=== PATIENT | male | born 1990 | race African-American/Black ===

== ENCOUNTER 2024-02-27 14:23 | Emergency (ER) | payer SELFPAY ==
[~2024-02-27] VITALS: Ht 190.5 cm; Wt 82.0 kg
[2024-02-27 14:30] VITALS: BP 132/93; PULSE 96; RESP 16; TEMP 98.7; O2SAT 97
== END 2024-02-27 15:38 | disposition home or self-care (01) ==
LOC: ER 15:26
DX: F10.129 Alcohol abuse with intoxication, unspecified (principal); I10 Essential (primary) hypertension; Y90.9 Presence of alcohol in blood, level not specified
CPT/HCPCS: 99283

== ENCOUNTER 2024-07-04 19:37 | Emergency (ER) | payer SELFPAY ==
[~2024-07-04] VITALS: Ht 182.9 cm; Wt 74.0 kg
[2024-07-04 19:42] VITALS: BP 124/96; PULSE 98; RESP 16; TEMP 98.2; O2SAT 96
[2024-07-04] MEDS ORDERED: ONDA4TAB50 PO (19:49)
== END 2024-07-04 20:21 | disposition home or self-care (01) ==
LOC: ER 19:37
DX: Z00.00 Encounter for general adult medical examination without abnormal findings (principal); Z59.00 Homelessness unspecified; F10.20 Alcohol dependence, uncomplicated; I10 Essential (primary) hypertension; Y90.0 Blood alcohol level of less than 20 mg/100 ml
CPT/HCPCS: 99283

== ENCOUNTER 2024-07-15 06:51 | Inpatient (IN) | payer OTHER ==
[~2024-07-15] VITALS: Ht 190.5 cm; Wt 79.8 kg
[~2024-07-15 06:51] MED LIST: ONDA4TAB50 PO
[2024-07-15] MEDS: KETOROLAC 30MG/ML VIAL IV STA (07:05)
[2024-07-15] MEDS: ONDANSETRON HCL 4MG/2ML INJ IV STA (07:05)
[2024-07-15] MEDS: SODIUM CHLORIDE 0.9% 1,000 ML IV ONE (07:15)
[2024-07-15 07:27] LABS: BASOPHILS % 0.5 % (0.0-2.0); EOSINOPHILS % 0.5 % (0.0-5.0); HEMATOCRIT. 39.2 % (42.0-52.0); HEMOGLOBIN. 13.2 g/dL (14.0-18.0); LYMPHOCYTES % 10.9 % (20.0-50.0); MEAN CORPUSCULAR HGB CONC 33.7 g/dL (31.0-37.0); MEAN CORPUSCULAR VOLUME 89.1 fL (80.0-94.0); MEAN PLATELET VOLUME 8.2 fl (7.4-10.4); NEUTROPHILS % 81.1 % (40.0-76.0); PLATELET 119 x1000/uL (130-400); RED CELL DISTRIBUTION WIDTH 16.2 % (11.6-14.6); WHITE BLOOD COUNT 3.7 x1000/uL (4.5-11.0)
[2024-07-15 07:33] LABS: CARBON DIOXIDE 31 mEq/L (21-32); CHLORIDE 98 mEq/L (98-107); POTASSIUM 3.9 mEq/L (3.5-5.1); SODIUM 136 mEq/L (136-145)
[2024-07-15 07:34] LABS: CALCIUM 9.5 mg/dL (8.7-10.4)
[2024-07-15 07:39] LABS: CREATININE 0.8 mg/dL (0.6-1.3); GLUCOSE 96 mg/dL (70-105); UREA NITROGEN BLOOD 7 mg/dL (9-23)
[2024-07-15 07:41] LABS: TROPONIN I HIGH SENSITIVITY < 4 ng/L (3.0-53)
[2024-07-15 09:05] LABS: ALANINE AMINOTRANSFERASE 230 IU/L (10-49); ALBUMIN 4.4 g/dL (3.2-4.8); ASPARTATE AMINOTRANSFERASE 261 IU/L (<34); BILIRUBIN DIRECT 0.3 mg/dL (<=3.0); BILIRUBIN TOTAL 0.8 mg/dL (0.1-1.0); PROTEIN TOTAL 7.1 g/dL (6.0-8.3)
[2024-07-15] MEDS: LORAZEPAM 2MG/ML INJ IV ONE (10:45)
[2024-07-15 11:30] VITALS: BP 145/87; PULSE 90; RESP 18; TEMP 36.8072
[2024-07-15 12:00] VITALS: BP 145/97; PULSE 102; RESP 20; TEMP 36.78072; O2SAT 97
[2024-07-15] MEDS ORDERED: PANT40TA51 PO (12:52)
[2024-07-15] MEDS ORDERED: GABA-532 PO (12:52)
[2024-07-15] MEDS ORDERED: ONDANSETRON HCL 4MG/2ML INJ IV PRN (13:00)
[2024-07-15] MEDS ORDERED: MAGNESIUM/ALUMINUM HYDROXIDE/SIMETHICONE 30ML UDC PO PRN (13:00)
[2024-07-15] MEDS: PANTOPRAZOLE 40MG DR TABLET PO SCH (13:00)
[2024-07-15] MEDS ORDERED: ONDANSETRON HCL 4MG TABLET PO PRN (13:00)
[2024-07-15] MEDS ORDERED: LORAZEPAM 2MG/ML INJ IV PRN (13:00)
[2024-07-15] MEDS: ENOXAPARIN 40MG/0.4ML SYR SUBCUT SCH (13:44)
[2024-07-15] MEDS: LEVETIRACETAM 500MG PREMIX 100 ML IV SCH (15:20)
[2024-07-15] MEDS: MVI, ADULT NO.1 10 ML, FOLIC ACID 1 MG, THIAMINE HCL 100 MG in SODIUM CHLORIDE 0.9% 1,0... IV NR (15:22)
[2024-07-15] MEDS: DEXT 5%/0.45% NACL KCL 20MEQ/L 1,000 ML IV SCH (15:40)
[2024-07-15 16:00] VITALS: BP_SYST 152; BP_SYST 157; BP_DIAS 106; BP_DIAS 80; PULSE 91; RESP 18; RESP 20; TEMP 36.61404; O2SAT 99
[2024-07-15 20:00] VITALS: BP 146/102; PULSE 84; RESP 20; TEMP 36.55848; O2SAT 100
[2024-07-15] MEDS ORDERED: LEVETIRACETAM 500MG in NACL 100ML PREMIX IV SCH (21:00)
[2024-07-16] VITALS: BP 140/89; PULSE 75; RESP 20; TEMP 36.28068; O2SAT 95
[2024-07-16 04:00] VITALS: BP 136/89; PULSE 93; RESP 19; TEMP 36.114; O2SAT 99
[2024-07-16] MEDS: PANTOPRAZOLE 40MG DR TABLET PO SCH (06:11)
[2024-07-16 08:00] VITALS: BP 139/92; PULSE 85; RESP 16; TEMP 36.22512; O2SAT 98
[2024-07-16 09:47] LABS: BASOPHILS % 0.2 % (0.0-2.0); HEMATOCRIT. 38.6 % (42.0-52.0); HEMOGLOBIN. 12.7 g/dL (14.0-18.0); LYMPHOCYTES % 8.9 % (20.0-50.0); MEAN CORPUSCULAR HEMOGLOBIN 29.5 pg (28.0-32.0); MEAN CORPUSCULAR HGB CONC 32.9 g/dL (31.0-37.0); MEAN CORPUSCULAR VOLUME 89.5 fL (80.0-94.0); MEAN PLATELET VOLUME 9.1 fl (7.4-10.4); MONOCYTES % 9.7 % (2.0-8.0); NEUTROPHILS % 80.2 % (40.0-76.0); PLATELET 112 x1000/uL (130-400); RED BLOOD CELL COUNT 4.32 mill/uL (4.7-6.1); RED CELL DISTRIBUTION WIDTH 16.5 % (11.6-14.6); WHITE BLOOD COUNT 4.6 x1000/uL (4.5-11.0)
[2024-07-16 09:51] LABS: CHLORIDE 99 mEq/L (98-107); POTASSIUM 3.7 mEq/L (3.5-5.1); SODIUM 134 mEq/L (136-145)
[2024-07-16 09:52] LABS: CARBON DIOXIDE 28 mEq/L (21-32)
[2024-07-16 09:53] LABS: CALCIUM 9.1 mg/dL (8.7-10.4)
[2024-07-16 09:57] LABS: CREATININE 0.9 mg/dL (0.6-1.3); GLUCOSE 79 mg/dL (70-105)
[2024-07-16 10:05] LABS: UREA NITROGEN BLOOD < 5 mg/dL (9-23)
[2024-07-16 10:40] LABS: TROPONIN I HIGH SENSITIVITY < 4 ng/L (3.0-53)
[2024-07-16 12:00] VITALS: BP 134/82; PULSE 90; RESP 19; TEMP 36.33624; O2SAT 96
[2024-07-16 13:18] LABS: FOLIC ACID (FOLATE) SERUM 13.65 ng/mL (>5.38); VITAMIN B12 SERUM 558 pg/mL (211-911)
[2024-07-16 16:00] VITALS: BP 124/86; PULSE 94; RESP 18; TEMP 36.114; O2SAT 96
[2024-07-16 20:00] VITALS: BP 148/85; PULSE 78; RESP 21; TEMP 36.28068; O2SAT 97
[2024-07-17] VITALS: BP 130/82; PULSE 80; RESP 20; TEMP 36.44736; O2SAT 98
[2024-07-17 04:00] VITALS: BP 132/88; PULSE 80; RESP 18; TEMP 36.44736; O2SAT 98
[2024-07-17 08:00] VITALS: BP 133/96; PULSE 74; RESP 16; TEMP 36.114; O2SAT 96
[2024-07-17] MEDS: VISCOUS LIDOCAINE 2% 15 ML UDC PO PRN (09:01)
[2024-07-17 12:00] VITALS: BP 138/84; PULSE 74; RESP 18; TEMP 36.05844; O2SAT 98
[2024-07-17 16:00] VITALS: BP 148/110; PULSE 77; RESP 18; TEMP 36.28068; O2SAT 98
[2024-07-17] MEDS: LEVETIRACETAM 500MG TABLET PO SCH (16:02)
[2024-07-17] MEDS: CLONIDINE 0.1MG TABLET PO PRN (16:35)
[2024-07-17 20:00] VITALS: BP 135/96; PULSE 76; RESP 18; TEMP 36.3918; O2SAT 98
[2024-07-18 00:26] VITALS: BP 139/95; PULSE 65; RESP 18; TEMP 36.3918; O2SAT 100
[2024-07-18 04:00] VITALS: BP 114/72; PULSE 85; RESP 20; TEMP 36.114; O2SAT 97
[2024-07-18 08:00] VITALS: BP 132/96; PULSE 72; RESP 20; TEMP 36.55848; O2SAT 100
[2024-07-18 12:00] VITALS: BP 116/81; PULSE 76; RESP 20; TEMP 36.3918; O2SAT 100
[2024-07-18] MEDS: ACETAMINOPHEN 325MG TABLET PO PRN (15:04)
[2024-07-18 16:00] VITALS: BP 128/91; PULSE 69; RESP 20; TEMP 36.50292; O2SAT 100
[2024-07-18] MEDS ORDERED: KEPP500 PO (16:43)
[2024-07-18 20:00] VITALS: BP 123/85; PULSE 67; RESP 20; TEMP 36.6696; O2SAT 100
[2024-07-19] VITALS: BP 114/81; PULSE 73; RESP 20; TEMP 36.28068; O2SAT 100
[2024-07-19 04:00] VITALS: BP 119/82; PULSE 66; RESP 20; TEMP 36.44736; O2SAT 100
[2024-07-19 08:00] VITALS: BP 120/83; PULSE 76; RESP 18; TEMP 36.28068; O2SAT 100
[2024-07-19 11:22] VITALS: BP 120/83; PULSE 76; TEMP 97.3; O2SAT 100
[2024-07-19 12:00] VITALS: BP 130/99; PULSE 101; RESP 18; TEMP 36.33624; O2SAT 100
== END 2024-07-19 14:00 | disposition home or self-care (01) | DRG 53 ==
LOC: ER 06:51 → CANBEDREQ 08:14 → 7EST 08:17
PROVIDERS: ADMIT Internal Medicine Pulmonary Disease; ATTEND Internal Medicine Pulmonary Disease
PROC: 4A00X4Z Measurement of Central Nervous Electrical Activity, External Approach (ICD-10-PCS; principal; 2024-07-16)
DX: G40.909 Epilepsy, unspecified, not intractable, without status epilepticus (principal); D69.6 Thrombocytopenia, unspecified; F10.239 Alcohol dependence with withdrawal, unspecified; I10 Essential (primary) hypertension; Y90.9 Presence of alcohol in blood, level not specified; Z87.828 Personal history of other (healed) physical injury and trauma; Z87.891 Personal history of nicotine dependence
CPT/HCPCS: 36415; 71045; 80048; 80076; 82607; 82746; 83735; 83880; 84484; 85025; 93005; 95816; 97162; 99285; J1885; J1953; J2060; J2405; J3411; J3490; J7030

== ENCOUNTER 2024-07-19 17:03 | Emergency (ER) | payer OTHER ==
[~2024-07-19] VITALS: Ht 185.4 cm; Wt 84.0 kg
[~2024-07-19 17:03] MED LIST changes: +GABA-532 PO; +KEPP500 PO; +PANT40TA51 PO
[2024-07-19 17:12] VITALS: O2SAT 99
[2024-07-19 20:45] LABS: BASOPHILS % 0.4 % (0.0-2.0); EOSINOPHILS % 1.5 % (0.0-5.0); HEMATOCRIT. 42.1 % (42.0-52.0); HEMOGLOBIN. 13.7 g/dL (14.0-18.0); LYMPHOCYTES % 22.1 % (20.0-50.0); MEAN CORPUSCULAR HEMOGLOBIN 29.5 pg (28.0-32.0); MEAN CORPUSCULAR HGB CONC 32.6 g/dL (31.0-37.0); MEAN CORPUSCULAR VOLUME 90.5 fL (80.0-94.0); MEAN PLATELET VOLUME 8.1 fl (7.4-10.4); PLATELET 198 x1000/uL (130-400); RED BLOOD CELL COUNT 4.65 mill/uL (4.7-6.1); RED CELL DISTRIBUTION WIDTH 16.4 % (11.6-14.6); WHITE BLOOD COUNT 3.9 x1000/uL (4.5-11.0)
[2024-07-19 20:48] LABS: CHLORIDE 100 mEq/L (98-107); POTASSIUM 4.1 mEq/L (3.5-5.1); SODIUM 136 mEq/L (136-145)
[2024-07-19 20:49] LABS: CARBON DIOXIDE 29 mEq/L (21-32)
[2024-07-19 20:50] LABS: CALCIUM 9.6 mg/dL (8.7-10.4)
[2024-07-19 20:54] LABS: CREATININE 1.1 mg/dL (0.6-1.3); GLUCOSE 92 mg/dL (70-105); UREA NITROGEN BLOOD 7 mg/dL (9-23)
[2024-07-19 20:55] LABS: ETHANOL BLOOD 102 mg/dL (<10)
[2024-07-19 20:56] LABS: ACETAMINOPHEN < 2 ug/mL (10-30)
[2024-07-19 21:20] LABS: *AMPHETAMINES SCREEN URINE NEGATIVE (NEGATIVE); *BARBITURATES SCREEN URINE NEGATIVE (NEGATIVE); *BENZODIAZEPINES SCREEN URINE NEGATIVE (NEGATIVE); *COCAINE SCREEN URINE NEGATIVE (NEGATIVE); METHADONE URINE SCREEN NEGATIVE (NEGATIVE)
[2024-07-19 21:21] LABS: CANNABINOID URINE SCREEN NEGATIVE (NEGATIVE); ECSTASY MDMA SCREEN URINE NEGATIVE (NEGATIVE); OPIATES URINE SCREEN NEGATIVE (NEGATIVE); PHENCYCLIDINE URINE SCREEN NEGATIVE (NEGATIVE)
[2024-07-20 09:28] VITALS: BP 130/88; PULSE 66; RESP 18; TEMP 36.61404; O2SAT 100
[2024-07-20] MEDS: LEVETIRACETAM 500MG/5ML CUP PO SCH (09:31)
== END 2024-07-20 13:40 ==
LOC: ER 17:03
DX: R68.89 Other general symptoms and signs (principal); F10.20 Alcohol dependence, uncomplicated; I10 Essential (primary) hypertension; Z20.822 Contact with and (suspected) exposure to COVID-19; Y90.5 Blood alcohol level of 100-119 mg/100 ml
CPT/HCPCS: 80305; 80048; 80307; 80329; 80320; 85025; 36415; 99285; 87426; Z7610; G0480

== ENCOUNTER 2024-07-20 19:51 | Emergency (ER) | payer MEDICAID, OTHER ==
[~2024-07-20] VITALS: Ht 185.4 cm; Wt 75.0 kg
[2024-07-20 19:57] VITALS: O2SAT 95
[2024-07-20 20:07] VITALS: BP 128/88; PULSE 101; RESP 16; TEMP 98; O2SAT 98
[2024-07-20] MEDS ORDERED: SODIUM CHLORIDE 0.9% 1,000 ML IV ONE (20:30)
[2024-07-20 20:50] LABS: HEMATOCRIT. 41.5 % (42.0-52.0); HEMOGLOBIN. 13.2 g/dL (14.0-18.0); MEAN CORPUSCULAR HGB CONC 31.9 g/dL (31.0-37.0); MEAN CORPUSCULAR VOLUME 90.9 fL (80.0-94.0); MEAN PLATELET VOLUME 7.9 fl (7.4-10.4); PLATELET 214 x1000/uL (130-400); RED BLOOD CELL COUNT 4.56 mill/uL (4.7-6.1); RED CELL DISTRIBUTION WIDTH 16.5 % (11.6-14.6)
[2024-07-20 20:56] LABS: CHLORIDE 98 mEq/L (98-107); POTASSIUM 3.8 mEq/L (3.5-5.1); SODIUM 134 mEq/L (136-145)
[2024-07-20 20:57] LABS: CARBON DIOXIDE 31 mEq/L (21-32)
[2024-07-20 20:58] LABS: DIFFERENTIAL COMMENT 1
[2024-07-20 21:02] LABS: GLUCOSE 92 mg/dL (70-105); UREA NITROGEN BLOOD 8 mg/dL (9-23)
[2024-07-20 21:18] LABS: TROPONIN I HIGH SENSITIVITY < 4 ng/L (3.0-53)
[2024-07-20 22:51] LABS: ANISOCYTOSIS 1+; PLATELET ESTIMATE NORMAL
== END 2024-07-21 00:11 | disposition left against medical advice (07) ==
LOC: ER 20:25
DX: R53.1 Weakness (principal); F10.20 Alcohol dependence, uncomplicated; J45.909 Unspecified asthma, uncomplicated; I10 Essential (primary) hypertension
CPT/HCPCS: 99285; 71045; 80048; 83880; 85025; 84484; 36415; 93005; J7030

== ENCOUNTER 2024-07-21 00:29 | Emergency (ER) | payer OTHER ==
[~2024-07-21] VITALS: Ht 185.4 cm; Wt 75.0 kg
[2024-07-21 00:31] VITALS: PULSE 71; O2SAT 95
[2024-07-21 00:35] VITALS: BP 123/68; RESP 16; TEMP 98; O2SAT 98
== END 2024-07-21 03:10 | disposition home or self-care (01) ==
LOC: ER 00:35
DX: S01.552A Open bite of oral cavity, initial encounter (principal); I10 Essential (primary) hypertension; J45.909 Unspecified asthma, uncomplicated; Z98.890 Other specified postprocedural states; Z86.59 Personal history of other mental and behavioral disorders; X58.XXXA Exposure to other specified factors, initial encounter; Y93.89 Activity, other specified; Y92.89 Other specified places as the place of occurrence of the external cause; Y99.8 Other external cause status
CPT/HCPCS: 99281

== ENCOUNTER 2024-07-21 16:51 | Emergency (ER) | payer MEDICAID, OTHER ==
[~2024-07-21] VITALS: Ht 190.5 cm; Wt 82.0 kg
[2024-07-21 16:55] VITALS: TEMP 98.3; O2SAT 100
[2024-07-21 16:56] VITALS: O2SAT 99
[2024-07-21 20:13] VITALS: BP 135/86; PULSE 85; RESP 16
[2024-07-21] MEDS: IBUPROFEN 600MG TABLET PO ONE (20:13)
[2024-07-21] MEDS: VISCOUS LIDOCAINE 2% 15 ML UDC MM NR (20:25)
[2024-08-09] MEDS ORDERED: LEVE500T19 PO (07:34)
[2024-08-09] MEDS ORDERED: HYDR-4001 PO (07:35)
[2024-08-09] MEDS ORDERED: OMEP20CA14 PO (07:35)
[2024-08-09] MEDS ORDERED: DIAZ5TAB4 PO (07:35)
[2024-08-09] MEDS ORDERED: GABA-529 PO (07:35)
[2024-08-09] MEDS ORDERED: KETO10TA2 PO (07:35)
== END 2024-07-21 21:11 | disposition home or self-care (01) ==
LOC: ER 16:51
DX: S00.512A Abrasion of oral cavity, initial encounter (principal); M79.10 Myalgia, unspecified site; J45.909 Unspecified asthma, uncomplicated; Z98.890 Other specified postprocedural states; Z79.899 Other long term (current) drug therapy; X58.XXXA Exposure to other specified factors, initial encounter; Y93.89 Activity, other specified; Y92.89 Other specified places as the place of occurrence of the external cause; Y99.8 Other external cause status
CPT/HCPCS: 99282; 99283

== ENCOUNTER 2024-07-22 08:56 | Emergency (ER) | payer OTHER ==
[~2024-07-22] VITALS: Ht 190.5 cm; Wt 83.0 kg
[2024-07-22 09:09] VITALS: BP 112/82; RESP 18; TEMP 98.1; O2SAT 100
[2024-07-22 09:11] VITALS: PULSE 110; O2SAT 100
== END 2024-07-22 13:00 | disposition home or self-care (01) ==
LOC: ER 08:56
DX: G40.909 Epilepsy, unspecified, not intractable, without status epilepticus (principal); J45.909 Unspecified asthma, uncomplicated; F10.20 Alcohol dependence, uncomplicated; Z98.890 Other specified postprocedural states; Z59.00 Homelessness unspecified; Y90.9 Presence of alcohol in blood, level not specified
CPT/HCPCS: 99281

== ENCOUNTER 2024-07-28 06:07 | Emergency (ER) | payer OTHER ==
[~2024-07-28] VITALS: Ht 182.9 cm; Wt 84.0 kg
[2024-07-28 06:14] VITALS: TEMP 98.2; O2SAT 97
[2024-07-28] MEDS: SODIUM CHLORIDE 0.9% 1,000 ML IV ONE (07:00)
[2024-07-28 07:14] LABS: CHLORIDE 105 mEq/L (98-107); POTASSIUM 3.7 mEq/L (3.5-5.1); SODIUM 144 mEq/L (136-145)
[2024-07-28 07:15] LABS: CARBON DIOXIDE 32 mEq/L (21-32)
[2024-07-28 07:16] LABS: CALCIUM 9.3 mg/dL (8.7-10.4)
[2024-07-28 07:20] LABS: CREATININE 1.1 mg/dL (0.6-1.3); GLUCOSE 77 mg/dL (70-105); UREA NITROGEN BLOOD 8 mg/dL (9-23)
[2024-07-28 07:30] LABS: ETHANOL BLOOD 295 mg/dL (<10)
[2024-07-28 07:33] LABS: BASOPHILS % 1.2 % (0.0-2.0); EOSINOPHILS % 1.8 % (0.0-5.0); HEMATOCRIT. 39.7 % (42.0-52.0); HEMOGLOBIN. 12.9 g/dL (14.0-18.0); LYMPHOCYTES % 23.6 % (20.0-50.0); MEAN CORPUSCULAR HGB CONC 32.6 g/dL (31.0-37.0); MEAN CORPUSCULAR VOLUME 91.8 fL (80.0-94.0); MONOCYTES % 9.5 % (2.0-8.0); NEUTROPHILS % 63.9 % (40.0-76.0); PLATELET 316 x1000/uL (130-400); RED BLOOD CELL COUNT 4.32 mill/uL (4.7-6.1); RED CELL DISTRIBUTION WIDTH 16.2 % (11.6-14.6); WHITE BLOOD COUNT 4.7 x1000/uL (4.5-11.0)
[2024-07-28 10:00] VITALS: BP 72/78; PULSE 20; RESP 20; O2SAT 98
[2024-08-09] MEDS ORDERED: LEVE500T19 PO (07:34)
[2024-08-09] MEDS ORDERED: DIAZ5TAB4 PO (07:35)
[2024-08-09] MEDS ORDERED: GABA-529 PO (07:35)
[2024-08-09] MEDS ORDERED: KETO10TA2 PO (07:35)
[2024-08-09] MEDS ORDERED: OMEP20CA14 PO (07:35)
[2024-08-09] MEDS ORDERED: HYDR-4001 PO (07:35)
== END 2024-07-28 14:54 | disposition home or self-care (01) ==
LOC: ER 06:07
DX: F10.129 Alcohol abuse with intoxication, unspecified (principal); J45.909 Unspecified asthma, uncomplicated; Z98.890 Other specified postprocedural states; Y90.9 Presence of alcohol in blood, level not specified
CPT/HCPCS: 80048; 80320; 85025; 36415; 70450; 96360; 99284; J7030; G0480

== ENCOUNTER 2024-08-01 09:29 | Emergency (ER) | payer MEDICAID ==
[~2024-08-01] VITALS: Ht 182.9 cm; Wt 84.0 kg
[2024-08-01 09:34] VITALS: O2SAT 99
[2024-08-01 09:46] VITALS: BP 132/92; PULSE 84; RESP 18; TEMP 98.6; O2SAT 99
[2024-08-01 10:24] LABS: CHLORIDE 103 mEq/L (98-107); POTASSIUM 3.9 mEq/L (3.5-5.1); SODIUM 138 mEq/L (136-145)
[2024-08-01 10:25] LABS: CARBON DIOXIDE 29 mEq/L (21-32)
[2024-08-01 10:26] LABS: CALCIUM 9.1 mg/dL (8.7-10.4)
[2024-08-01 10:30] LABS: CREATININE 0.9 mg/dL (0.6-1.3); GLUCOSE 91 mg/dL (70-105); UREA NITROGEN BLOOD 12 mg/dL (9-23)
[2024-08-01 10:32] LABS: TROPONIN I HIGH SENSITIVITY < 4 ng/L (3.0-53)
[2024-08-01 10:37] LABS: BASOPHILS % 0.9 % (0.0-2.0); EOSINOPHILS % 1.4 % (0.0-5.0); HEMATOCRIT. 38.9 % (42.0-52.0); HEMOGLOBIN. 12.9 g/dL (14.0-18.0); LYMPHOCYTES % 11.7 % (20.0-50.0); MEAN CORPUSCULAR HEMOGLOBIN 29.7 pg (28.0-32.0); MEAN CORPUSCULAR HGB CONC 33.2 g/dL (31.0-37.0); MEAN CORPUSCULAR VOLUME 89.6 fL (80.0-94.0); MEAN PLATELET VOLUME 8.4 fl (7.4-10.4); MONOCYTES % 7.9 % (2.0-8.0); NEUTROPHILS % 78.1 % (40.0-76.0); PLATELET 265 x1000/uL (130-400); RED BLOOD CELL COUNT 4.35 mill/uL (4.7-6.1); RED CELL DISTRIBUTION WIDTH 15.9 % (11.6-14.6); WHITE BLOOD COUNT 7.2 x1000/uL (4.5-11.0)
== END 2024-08-01 11:18 | disposition left against medical advice (07) ==
LOC: ER 09:41
DX: R53.1 Weakness (principal); F10.20 Alcohol dependence, uncomplicated; J45.909 Unspecified asthma, uncomplicated; Z79.899 Other long term (current) drug therapy; Y90.9 Presence of alcohol in blood, level not specified
CPT/HCPCS: 36415; 80048; 84484; 85025; 99283

== ENCOUNTER 2024-08-01 12:42 | Emergency (ER) | payer MEDICAID, OTHER ==
[~2024-08-01] VITALS: Ht 182.9 cm; Wt 87.0 kg
[2024-08-01 13:21] VITALS: TEMP 98.7; O2SAT 100
[2024-08-01 13:33] VITALS: BP 128/77; PULSE 74; RESP 16; O2SAT 99
== END 2024-08-01 13:36 | disposition home or self-care (01) ==
LOC: ER 12:42
DX: R53.1 Weakness (principal); J45.909 Unspecified asthma, uncomplicated; F10.20 Alcohol dependence, uncomplicated; G40.909 Epilepsy, unspecified, not intractable, without status epilepticus
CPT/HCPCS: 99281

== ENCOUNTER 2024-08-02 21:09 | Emergency (ER) | payer OTHER ==
[~2024-08-02] VITALS: Ht 190.5 cm; Wt 85.0 kg
[2024-08-02 21:17] VITALS: O2SAT 100
[2024-08-02] MEDS: LORAZEPAM 1MG TABLET PO ONE (21:30)
[2024-08-02] MEDS: OLANZAPINE 5MG TABLET ODT PO ONE (21:30)
[2024-08-02 22:34] LABS: BASOPHILS % 0.6 % (0.0-2.0); EOSINOPHILS % 2.7 % (0.0-5.0); HEMATOCRIT. 39.4 % (42.0-52.0); HEMOGLOBIN. 13.1 g/dL (14.0-18.0); MEAN CORPUSCULAR HGB CONC 33.3 g/dL (31.0-37.0); MEAN PLATELET VOLUME 8.7 fl (7.4-10.4); MONOCYTES % 7.5 % (2.0-8.0); NEUTROPHILS % 68.2 % (40.0-76.0); PLATELET 250 x1000/uL (130-400); RED BLOOD CELL COUNT 4.37 mill/uL (4.7-6.1); RED CELL DISTRIBUTION WIDTH 16.1 % (11.6-14.6); WHITE BLOOD COUNT 5.6 x1000/uL (4.5-11.0)
[2024-08-02 22:46] LABS: CHLORIDE 104 mEq/L (98-107); POTASSIUM 4.7 mEq/L (3.5-5.1); SODIUM 140 mEq/L (136-145)
[2024-08-02 22:47] LABS: CARBON DIOXIDE 29 mEq/L (21-32)
[2024-08-02 22:47] LABS: *AMPHETAMINES SCREEN URINE NEGATIVE (NEGATIVE); *BARBITURATES SCREEN URINE NEGATIVE (NEGATIVE); *BENZODIAZEPINES SCREEN URINE NEGATIVE (NEGATIVE); *COCAINE SCREEN URINE NEGATIVE (NEGATIVE)
[2024-08-02 22:48] LABS: CALCIUM 9.5 mg/dL (8.7-10.4)
[2024-08-02 22:48] LABS: CANNABINOID URINE SCREEN NEGATIVE (NEGATIVE); ECSTASY MDMA SCREEN URINE NEGATIVE (NEGATIVE); METHADONE URINE SCREEN NEGATIVE (NEGATIVE); OPIATES URINE SCREEN NEGATIVE (NEGATIVE); PHENCYCLIDINE URINE SCREEN NEGATIVE (NEGATIVE)
[2024-08-02 22:52] LABS: CREATININE 1.2 mg/dL (0.6-1.3)
[2024-08-02 22:53] LABS: GLUCOSE 89 mg/dL (70-105); UREA NITROGEN BLOOD 13 mg/dL (9-23)
[2024-08-02] MEDS: PANTOPRAZOLE 40MG DR TABLET PO ONE (22:53)
[2024-08-02] MEDS: LEVETIRACETAM 500MG TABLET PO SCH (22:53)
[2024-08-02] MEDS: ONDANSETRON 4MG ODT PO ONE (22:53)
[2024-08-02 22:54] LABS: ACETAMINOPHEN < 2 ug/mL (10-30)
[2024-08-02 23:02] LABS: ETHANOL BLOOD 295 mg/dL (<10)
[2024-08-03 15:15] VITALS: BP 136/75; PULSE 79; RESP 13; TEMP 36.94740; O2SAT 100
[2024-08-09] MEDS ORDERED: LEVE500T19 PO (07:34)
[2024-08-09] MEDS ORDERED: GABA-529 PO (07:35)
[2024-08-09] MEDS ORDERED: DIAZ5TAB4 PO (07:35)
[2024-08-09] MEDS ORDERED: HYDR-4001 PO (07:35)
[2024-08-09] MEDS ORDERED: OMEP20CA14 PO (07:35)
[2024-08-09] MEDS ORDERED: KETO10TA2 PO (07:35)
== END 2024-08-03 15:25 | disposition home or self-care (01) ==
LOC: ER 21:09
DX: R45.851 Suicidal ideations (principal); F10.20 Alcohol dependence, uncomplicated; J45.909 Unspecified asthma, uncomplicated; Y90.9 Presence of alcohol in blood, level not specified; Z20.822 Contact with and (suspected) exposure to COVID-19
CPT/HCPCS: 80305; 80048; 80307; 80329; 80320; 85025; 36415; 99285; 87426; Q0162; G0480

== ENCOUNTER → 2024-08-05 | Emergency (ER) | payer OTHER ==
[~2024-08-05] VITALS: Ht 182.9 cm; Wt 87.0 kg
[~2024-08-05] MED LIST changes: +ACET-2708 MT; +DIAZ5TAB4 PO; +GABA-529 PO; +HYDR-4001 PO; +KETO10TA2 PO; +LEVE500T19 PO; +OMEP20CA14 PO
[2024-08-05 21:33] VITALS: O2SAT 98
[2024-08-05] MEDS: HALOPERIDOL LACTATE 5MG/ML VIAL IM ONE (22:14)
[2024-08-05 23:31] LABS: CLARITY URINE CLEAR (CLEAR); COLOR URINE YELLOW (YELLOW); GLUCOSE URINE NEGATIVE (NEGATIVE); KETONES URINE NEGATIVE (NEGATIVE); LEUKOCYTE ESTERASE URINE NEGATIVE (NEGATIVE); NITRITE URINE NEGATIVE (NEGATIVE); OCCULT BLOOD URINE NEGATIVE (NEGATIVE); PROTEIN URINE NEGATIVE (NEGATIVE); SPECIFIC GRAVITY URINE 1.013 (1.005-1.030); UROBILINOGEN URINE 0.2 E.U./dL (0.2-1.0)
[2024-08-05 23:38] LABS: *AMPHETAMINES SCREEN URINE NEGATIVE (NEGATIVE); *BARBITURATES SCREEN URINE NEGATIVE (NEGATIVE); *BENZODIAZEPINES SCREEN URINE NEGATIVE (NEGATIVE); *COCAINE SCREEN URINE NEGATIVE (NEGATIVE); METHADONE URINE SCREEN NEGATIVE (NEGATIVE); OPIATES URINE SCREEN NEGATIVE (NEGATIVE)
[2024-08-05 23:39] LABS: CANNABINOID URINE SCREEN NEGATIVE (NEGATIVE); ECSTASY MDMA SCREEN URINE NEGATIVE (NEGATIVE); PHENCYCLIDINE URINE SCREEN NEGATIVE (NEGATIVE)
[2024-08-06 00:02] LABS: BASOPHILS % 0.6 % (0.0-2.0); EOSINOPHILS % 3.4 % (0.0-5.0); HEMATOCRIT. 36.7 % (42.0-52.0); HEMOGLOBIN. 12.1 g/dL (14.0-18.0); LYMPHOCYTES % 27.8 % (20.0-50.0); MEAN CORPUSCULAR HEMOGLOBIN 29.7 pg (28.0-32.0); MEAN CORPUSCULAR VOLUME 89.9 fL (80.0-94.0); MEAN PLATELET VOLUME 8.1 fl (7.4-10.4); MONOCYTES % 7.6 % (2.0-8.0); NEUTROPHILS % 60.6 % (40.0-76.0); PLATELET 206 x1000/uL (130-400); RED BLOOD CELL COUNT 4.09 mill/uL (4.7-6.1); WHITE BLOOD COUNT 3.6 x1000/uL (4.5-11.0)
[2024-08-06 00:05] LABS: CHLORIDE 107 mEq/L (98-107); SODIUM 143 mEq/L (136-145)
[2024-08-06 00:06] LABS: CARBON DIOXIDE 30 mEq/L (21-32)
[2024-08-06 00:07] LABS: CALCIUM 8.9 mg/dL (8.7-10.4)
[2024-08-06 00:11] LABS: CREATININE 1.2 mg/dL (0.6-1.3)
[2024-08-06 00:12] LABS: ETHANOL BLOOD 268 mg/dL (<10); GLUCOSE 103 mg/dL (70-105); UREA NITROGEN BLOOD 10 mg/dL (9-23)
[2024-08-06 09:58] VITALS: BP 141/81; PULSE 81; RESP 18; TEMP 36.89184; O2SAT 98
== END ==
LOC: ER 21:26
DX: F10.129 Alcohol abuse with intoxication, unspecified (principal); Z20.822 Contact with and (suspected) exposure to COVID-19; Z86.59 Personal history of other mental and behavioral disorders; Z79.899 Other long term (current) drug therapy; Y90.8 Blood alcohol level of 240 mg/100 ml or more
CPT/HCPCS: 80305; 80048; 81003; 80320; 85025; 36415; 96372; 99284; 87426; J1630; Z7610; G0480

== ENCOUNTER 2024-08-07 21:49 | Emergency (ER) | payer MEDICAID, OTHER ==
[~2024-08-07] VITALS: Ht 190.5 cm; Wt 84.0 kg
[~2024-08-07 21:49] MED LIST changes: -ACET-2708 MT; -DIAZ5TAB4 PO; -GABA-529 PO; -HYDR-4001 PO; -KETO10TA2 PO; -LEVE500T19 PO; -OMEP20CA14 PO
[2024-08-07 22:01] VITALS: BP 135/98; PULSE 86; RESP 16; TEMP 98.5; O2SAT 98
[2024-08-07] MEDS ORDERED: ONDANSETRON HCL 4MG/2ML INJ IV STA (22:17)
[2024-08-07] MEDS: SODIUM CHLORIDE 0.9% 1,000 ML IV ONE (22:59)
[2024-08-07] MEDS: ONDANSETRON HCL 4MG/2ML INJ IV NR (22:59)
[2024-08-07 23:12] LABS: BASOPHILS % 0.4 % (0.0-2.0); EOSINOPHILS % 0.6 % (0.0-5.0); HEMATOCRIT. 39.1 % (42.0-52.0); HEMOGLOBIN. 12.9 g/dL (14.0-18.0); LYMPHOCYTES % 7.1 % (20.0-50.0); MEAN CORPUSCULAR HEMOGLOBIN 29.6 pg (28.0-32.0); MEAN CORPUSCULAR HGB CONC 33.1 g/dL (31.0-37.0); MEAN CORPUSCULAR VOLUME 89.4 fL (80.0-94.0); MEAN PLATELET VOLUME 8.3 fl (7.4-10.4); NEUTROPHILS % 86.9 % (40.0-76.0); PLATELET 186 x1000/uL (130-400); RED BLOOD CELL COUNT 4.38 mill/uL (4.7-6.1); RED CELL DISTRIBUTION WIDTH 15.9 % (11.6-14.6); WHITE BLOOD COUNT 7.9 x1000/uL (4.5-11.0)
[2024-08-07 23:19] LABS: CHLORIDE 100 mEq/L (98-107); POTASSIUM 3.8 mEq/L (3.5-5.1); SODIUM 137 mEq/L (136-145)
[2024-08-07 23:20] LABS: CARBON DIOXIDE 28 mEq/L (21-32); INR 0.9; PROTHROMBIN TIME 10.1 sec (9.6-11.0)
[2024-08-07 23:21] LABS: CALCIUM 9.3 mg/dL (8.7-10.4)
[2024-08-07 23:25] LABS: CREATININE 0.9 mg/dL (0.6-1.3); GLUCOSE 122 mg/dL (70-105)
[2024-08-07 23:26] LABS: ETHANOL BLOOD 232 mg/dL (<10); UREA NITROGEN BLOOD 12 mg/dL (9-23)
[2024-08-07 23:27] LABS: ACETAMINOPHEN < 2 ug/mL (10-30); ALANINE AMINOTRANSFERASE 28 IU/L (10-49); ALBUMIN 4.6 g/dL (3.2-4.8); ASPARTATE AMINOTRANSFERASE 33 IU/L (<34)
[2024-08-07 23:28] LABS: BILIRUBIN DIRECT 0.2 mg/dL (<=3.0); BILIRUBIN TOTAL 0.4 mg/dL (0.1-1.0); PROTEIN TOTAL 7.3 g/dL (6.0-8.3)
[2024-08-07 23:45] LABS: CLARITY URINE CLEAR (CLEAR); COLOR URINE YELLOW (YELLOW); GLUCOSE URINE NEGATIVE (NEGATIVE); KETONES URINE TRACE (NEGATIVE); LEUKOCYTE ESTERASE URINE TRACE (NEGATIVE); NITRITE URINE NEGATIVE (NEGATIVE); OCCULT BLOOD URINE NEGATIVE (NEGATIVE); PROTEIN URINE NEGATIVE (NEGATIVE); SPECIFIC GRAVITY URINE 1.014 (1.005-1.030); UROBILINOGEN URINE 0.2 E.U./dL (0.2-1.0)
[2024-08-07 23:51] LABS: *AMPHETAMINES SCREEN URINE NEGATIVE (NEGATIVE); *BARBITURATES SCREEN URINE NEGATIVE (NEGATIVE); *BENZODIAZEPINES SCREEN URINE NEGATIVE (NEGATIVE)
[2024-08-07 23:52] LABS: *COCAINE SCREEN URINE NEGATIVE (NEGATIVE); CANNABINOID URINE SCREEN NEGATIVE (NEGATIVE); ECSTASY MDMA SCREEN URINE NEGATIVE (NEGATIVE); METHADONE URINE SCREEN NEGATIVE (NEGATIVE); OPIATES URINE SCREEN NEGATIVE (NEGATIVE); PHENCYCLIDINE URINE SCREEN NEGATIVE (NEGATIVE)
[2024-08-08 03:08] LABS: SQUAMOUS EPITHELIAL CELL URINE FEW /lpf (RARE/1+)
[2024-08-08 03:09] LABS: WBC URINE 0-2 /hpf (0-2)
[2024-08-08 03:10] LABS: BACTERIA URINE NONE SEEN; RBC URINE 0-2 /hpf (0-2)
[2024-08-09] MEDS ORDERED: LEVE500T19 PO (07:34)
[2024-08-09] MEDS ORDERED: OMEP20CA14 PO (07:35)
[2024-08-09] MEDS ORDERED: KETO10TA2 PO (07:35)
[2024-08-09] MEDS ORDERED: DIAZ5TAB4 PO (07:35)
[2024-08-09] MEDS ORDERED: GABA-529 PO (07:35)
[2024-08-09] MEDS ORDERED: HYDR-4001 PO (07:35)
== END 2024-08-08 04:18 | disposition home or self-care (01) ==
LOC: ER 21:49
DX: F10.20 Alcohol dependence, uncomplicated (principal); R10.30 Lower abdominal pain, unspecified; R53.1 Weakness; E86.0 Dehydration; Y90.7 Blood alcohol level of 200-239 mg/100 ml
CPT/HCPCS: 80076; 80305; 80048; 81003; 80307; 80329; 80320; 83690; 85025; 85610; 36415; 96361; 96374; 99283; J2405; J7030; Z7610; G0480

== ENCOUNTER 2024-08-12 22:57 | Emergency (ER) | payer OTHER ==
[~2024-08-12] VITALS: Ht 185.4 cm; Wt 78.0 kg
[~2024-08-12 22:57] MED LIST changes: +DIAZ5TAB4 PO; +GABA-529 PO; +HYDR-4001 PO; +KETO10TA2 PO; +LEVE500T19 PO; +OMEP20CA14 PO
[2024-08-12 23:02] VITALS: O2SAT 100
[2024-08-12] MEDS ORDERED: ACETAMINOPHEN 325MG TABLET PO ONE (23:15)
[2024-08-13] MEDS ORDERED: ACET-2708 MT (02:15)
[2024-08-13 04:38] VITALS: BP 146/77; PULSE 80; RESP 18; TEMP 36.66960; O2SAT 100
[2024-08-13] MEDS: ACETAMINOPHEN 325MG TABLET PO NR (04:38)
== END 2024-08-13 04:42 | disposition home or self-care (01) ==
LOC: ER 22:57
DX: S09.8XXA Other specified injuries of head, initial encounter (principal); M25.562 Pain in left knee; F10.20 Alcohol dependence, uncomplicated; Z79.899 Other long term (current) drug therapy; Z59.00 Homelessness unspecified; W18.39XA Other fall on same level, initial encounter; Y93.89 Activity, other specified; Y92.89 Other specified places as the place of occurrence of the external cause; Y99.8 Other external cause status; Y90.9 Presence of alcohol in blood, level not specified
CPT/HCPCS: 73560; 99284

== ENCOUNTER 2024-08-25 12:22 | Emergency (ER) | payer OTHER ==
[~2024-08-25] VITALS: Ht 172.7 cm; Wt 73.0 kg
[~2024-08-25 12:22] MED LIST changes: +ACET-2708 MT
[2024-08-25 12:25] VITALS: BP 132/83; PULSE 94; RESP 18; O2SAT 97
[2024-08-25 13:04] VITALS: TEMP 98.7
[2024-08-25] MEDS: LEVETIRACETAM 500MG TABLET PO ONE (13:04)
[2024-08-25] MEDS: ACETAMINOPHEN 500MG TABLET PO ONE (13:04)
[2024-08-25] MEDS: SUMATRIPTAN SUCCINATE 25MG TABLET PO ONE (13:05)
== END 2024-08-25 13:25 | disposition home or self-care (01) ==
LOC: ER 12:22
DX: F10.129 Alcohol abuse with intoxication, unspecified (principal); G40.909 Epilepsy, unspecified, not intractable, without status epilepticus; Z59.00 Homelessness unspecified; Z79.899 Other long term (current) drug therapy; Y90.0 Blood alcohol level of less than 20 mg/100 ml
CPT/HCPCS: 99283

== ENCOUNTER 2024-08-26 20:33 | Emergency (ER) | payer OTHER ==
[~2024-08-26] VITALS: Ht 180.3 cm; Wt 91.0 kg
[2024-08-26 20:43] VITALS: BP 127/85; PULSE 91; RESP 18; TEMP 98.6; O2SAT 98
[2024-08-26] MEDS: ACETAMINOPHEN 325MG TABLET PO ONE (21:00)
[2024-08-26] MEDS: LEVETIRACETAM 500MG TABLET PO ONE (21:00)
[2024-08-27] MEDS: ACETAMINOPHEN 500MG TABLET PO NR (03:34)
[2024-08-27] MEDS: LEVETIRACETAM 500MG TABLET PO NR (03:34)
== END 2024-08-27 03:36 | disposition home or self-care (01) ==
LOC: ER 20:33
DX: F10.229 Alcohol dependence with intoxication, unspecified (principal); I10 Essential (primary) hypertension; R47.81 Slurred speech; G40.909 Epilepsy, unspecified, not intractable, without status epilepticus; Z79.899 Other long term (current) drug therapy; Y90.9 Presence of alcohol in blood, level not specified
CPT/HCPCS: 99283

== ENCOUNTER 2024-08-27 09:10 | Emergency (ER) | payer MEDICAID, OTHER ==
[~2024-08-27] VITALS: Ht 177.8 cm; Wt 77.0 kg
[2024-08-27 09:13] VITALS: O2SAT 100
[2024-08-27] MEDS: LEVETIRACETAM 500MG TABLET PO STA (09:40)
[2024-08-27 10:15] LABS: BASOPHILS % 1.1 % (0.0-2.0); EOSINOPHILS % 3.7 % (0.0-5.0); HEMATOCRIT. 41.2 % (42.0-52.0); HEMOGLOBIN. 13.3 g/dL (14.0-18.0); LYMPHOCYTES % 23.4 % (20.0-50.0); MEAN CORPUSCULAR HGB CONC 32.2 g/dL (31.0-37.0); MEAN CORPUSCULAR VOLUME 90.2 fL (80.0-94.0); MEAN PLATELET VOLUME 8.2 fl (7.4-10.4); MONOCYTES % 8.1 % (2.0-8.0); NEUTROPHILS % 63.7 % (40.0-76.0); PLATELET 206 x1000/uL (130-400); RED BLOOD CELL COUNT 4.56 mill/uL (4.7-6.1); RED CELL DISTRIBUTION WIDTH 15.3 % (11.6-14.6); WHITE BLOOD COUNT 3.6 x1000/uL (4.5-11.0)
[2024-08-27 10:22] LABS: CHLORIDE 106 mEq/L (98-107); POTASSIUM 4.5 mEq/L (3.5-5.1); SODIUM 142 mEq/L (136-145)
[2024-08-27 10:23] LABS: CARBON DIOXIDE 30 mEq/L (21-32)
[2024-08-27 10:24] LABS: CALCIUM 9.6 mg/dL (8.7-10.4)
[2024-08-27 10:28] LABS: GLUCOSE 91 mg/dL (70-105)
[2024-08-27 10:29] LABS: ETHANOL BLOOD 292 mg/dL (<10); UREA NITROGEN BLOOD 6 mg/dL (9-23)
[2024-08-27 10:30] LABS: ACETAMINOPHEN < 2 ug/mL (10-30)
[2024-08-27 10:55] LABS: CLARITY URINE CLEAR (CLEAR); COLOR URINE YELLOW (YELLOW); GLUCOSE URINE NEGATIVE (NEGATIVE); KETONES URINE NEGATIVE (NEGATIVE); LEUKOCYTE ESTERASE URINE NEGATIVE (NEGATIVE); NITRITE URINE NEGATIVE (NEGATIVE); OCCULT BLOOD URINE NEGATIVE (NEGATIVE); PH URINE 7.5 (4.5-8.0); PROTEIN URINE NEGATIVE (NEGATIVE); SPECIFIC GRAVITY URINE 1.004 (1.005-1.030); UROBILINOGEN URINE 0.2 E.U./dL (0.2-1.0)
[2024-08-27 11:29] LABS: *AMPHETAMINES SCREEN URINE NEGATIVE (NEGATIVE)
[2024-08-27 11:31] LABS: *BARBITURATES SCREEN URINE NEGATIVE (NEGATIVE); *BENZODIAZEPINES SCREEN URINE NEGATIVE (NEGATIVE); *COCAINE SCREEN URINE NEGATIVE (NEGATIVE); CANNABINOID URINE SCREEN NEGATIVE (NEGATIVE); ECSTASY MDMA SCREEN URINE NEGATIVE (NEGATIVE); METHADONE URINE SCREEN NEGATIVE (NEGATIVE); OPIATES URINE SCREEN NEGATIVE (NEGATIVE); PHENCYCLIDINE URINE SCREEN NEGATIVE (NEGATIVE)
[2024-08-27] MEDS: ONDANSETRON 4MG ODT PO ONE (17:15)
[2024-08-29] MEDS: ONDANSETRON 4MG ODT PO ONE (17:10)
[2024-08-29] MEDS: LEVETIRACETAM 500MG TABLET PO ONE (17:10)
[2024-08-29] MEDS: CHLORDIAZEPOXIDE 25MG CAPSULE PO ONE (23:38)
[2024-08-29] MEDS: CHLORDIAZEPOXIDE 25MG CAPSULE PO NR (23:40)
[2024-08-30] MEDS: ACETAMINOPHEN 325MG TABLET PO ONE (04:37)
[2024-08-30] MEDS: ONDANSETRON 4MG ODT PO ONE (04:37)
[2024-08-30 10:15] VITALS: BP 140/82; PULSE 89; RESP 18; TEMP 36.94740; O2SAT 100
[2024-08-31] MEDS ORDERED: GABA-532 PO (21:54)
[2024-08-31] MEDS ORDERED: HYDR50TA54 PO (21:54)
[2024-08-31] MEDS ORDERED: NALT50TA6 PO (21:54)
== END 2024-08-30 10:42 | disposition home or self-care (01) ==
LOC: ER 09:10
DX: R45.851 Suicidal ideations (principal); R56.9 Unspecified convulsions; F10.20 Alcohol dependence, uncomplicated; Z79.899 Other long term (current) drug therapy; Z86.73 Personal history of transient ischemic attack (TIA), and cerebral infarction without residual deficits; Z20.822 Contact with and (suspected) exposure to COVID-19; Y90.9 Presence of alcohol in blood, level not specified
CPT/HCPCS: 80305; 80048; 81003; 80307; 80329; 80320; 85025; 36415; 70450; 99291; 87426; Q0162 ×3; Z7610; G0480

== ENCOUNTER 2024-08-30 17:45 | Emergency (ER) | payer OTHER ==
[~2024-08-30] VITALS: Ht 180.3 cm; Wt 73.0 kg
[2024-08-30 17:50] VITALS: TEMP 98.4; O2SAT 98
[2024-08-30] MEDS: ONDANSETRON HCL 4MG/2ML INJ IV ONE (18:45)
[2024-08-30] MEDS: SODIUM CHLORIDE 0.9% 1,000 ML IV ONE (18:45)
[2024-08-30 19:02] LABS: BASOPHILS % 0.1 % (0.0-2.0); EOSINOPHILS % 1.1 % (0.0-5.0); HEMATOCRIT. 39.6 % (42.0-52.0); HEMOGLOBIN. 13.3 g/dL (14.0-18.0); LYMPHOCYTES % 11.8 % (20.0-50.0); MEAN CORPUSCULAR HEMOGLOBIN 30.1 pg (28.0-32.0); MEAN CORPUSCULAR HGB CONC 33.5 g/dL (31.0-37.0); MEAN CORPUSCULAR VOLUME 89.9 fL (80.0-94.0); MEAN PLATELET VOLUME 8.7 fl (7.4-10.4); MONOCYTES % 7.8 % (2.0-8.0); NEUTROPHILS % 79.2 % (40.0-76.0); PLATELET 188 x1000/uL (130-400); RED BLOOD CELL COUNT 4.41 mill/uL (4.7-6.1); RED CELL DISTRIBUTION WIDTH 14.5 % (11.6-14.6); WHITE BLOOD COUNT 5.6 x1000/uL (4.5-11.0)
[2024-08-30 19:07] LABS: CARBON DIOXIDE 26 mEq/L (21-32); CHLORIDE 95 mEq/L (98-107); POTASSIUM 3.6 mEq/L (3.5-5.1); SODIUM 131 mEq/L (136-145)
[2024-08-30 19:08] LABS: CALCIUM 9.4 mg/dL (8.7-10.4)
[2024-08-30 19:12] LABS: CREATININE 1.2 mg/dL (0.6-1.3)
[2024-08-30 19:13] LABS: ETHANOL BLOOD 201 mg/dL (<10); GLUCOSE 88 mg/dL (70-105); UREA NITROGEN BLOOD 12 mg/dL (9-23)
[2024-08-30 19:14] LABS: ALANINE AMINOTRANSFERASE 13 IU/L (10-49)
[2024-08-30 19:15] LABS: ALBUMIN 4.7 g/dL (3.2-4.8); ASPARTATE AMINOTRANSFERASE 22 IU/L (<34); BILIRUBIN DIRECT 0.1 mg/dL (<=3.0); BILIRUBIN TOTAL 0.3 mg/dL (0.1-1.0); PROTEIN TOTAL 7.3 g/dL (6.0-8.3)
[2024-08-30 20:23] VITALS: BP 120/80; PULSE 97; RESP 16; O2SAT 97
[2024-08-31] MEDS ORDERED: GABA-532 PO (21:54)
[2024-08-31] MEDS ORDERED: NALT50TA6 PO (21:54)
[2024-08-31] MEDS ORDERED: HYDR50TA54 PO (21:54)
== END 2024-08-30 20:48 | disposition home or self-care (01) ==
LOC: ER 17:45
DX: F10.129 Alcohol abuse with intoxication, unspecified (principal); Z79.899 Other long term (current) drug therapy; Y90.7 Blood alcohol level of 200-239 mg/100 ml
CPT/HCPCS: 80076; 80048; 80320; 83690; 85025; 36415; 96361; 96374; 99283; J2405; J7030; Z7610 ×3; G0480

== ENCOUNTER 2024-08-31 21:25 | Emergency (ER) | payer OTHER ==
[~2024-08-31] VITALS: Ht 190.5 cm; Wt 91.0 kg
[2024-08-31 21:27] VITALS: BP 110/70; PULSE 107; RESP 16; TEMP 98.8; O2SAT 99
[2024-08-31] MEDS ORDERED: CHLORDIAZEPOXIDE 25MG CAPSULE PO NR (21:45)
[2024-08-31] MEDS ORDERED: SODIUM CHLORIDE 0.9% 1,000 ML IV NR (21:45)
[2024-08-31] MEDS ORDERED: NALT50TA6 PO (21:54)
[2024-08-31] MEDS ORDERED: HYDR50TA54 PO (21:54)
[2024-08-31] MEDS ORDERED: GABA-532 PO (21:54)
[2024-08-31 22:53] LABS: HEMATOCRIT 39.6 % (42.0-52.0); HEMOGLOBIN 13.2 g/dL (14.0-18.0); MEAN CORPUSCULAR HEMOGLOBIN 29.8 pg (28.0-32.0); MEAN CORPUSCULAR HGB CONC 33.3 g/dL (31.0-37.0); MEAN CORPUSCULAR VOLUME 89.7 fL (80.0-94.0); PLATELET 168 x1000/uL (130-400); RED BLOOD CELL COUNT 4.42 mill/uL (4.7-6.1); RED CELL DISTRIBUTION WIDTH 14.6 % (11.6-14.6); WHITE BLOOD COUNT 6.8 x1000/uL (4.5-11.0)
[2024-08-31 22:59] LABS: CARBON DIOXIDE 27 mEq/L (21-32); CHLORIDE 102 mEq/L (98-107); POTASSIUM 3.5 mEq/L (3.5-5.1); SODIUM 136 mEq/L (136-145)
[2024-08-31 23:00] LABS: CALCIUM 9.5 mg/dL (8.7-10.4)
[2024-08-31 23:05] LABS: GLUCOSE 91 mg/dL (70-105); UREA NITROGEN BLOOD 8 mg/dL (9-23)
[2024-08-31 23:06] LABS: ALANINE AMINOTRANSFERASE 14 IU/L (10-49); ALBUMIN 4.7 g/dL (3.2-4.8); ASPARTATE AMINOTRANSFERASE 20 IU/L (<34)
[2024-08-31 23:07] LABS: BILIRUBIN TOTAL 0.3 mg/dL (0.1-1.0); PROTEIN TOTAL 7.5 g/dL (6.0-8.3)
== END 2024-09-01 06:30 | disposition home or self-care (01) ==
LOC: ER 21:25
DX: F10.239 Alcohol dependence with withdrawal, unspecified (principal); G40.909 Epilepsy, unspecified, not intractable, without status epilepticus; Z87.820 Personal history of traumatic brain injury; Z79.899 Other long term (current) drug therapy; Y90.9 Presence of alcohol in blood, level not specified
CPT/HCPCS: 36415; 80053; 82962; 85027; 93005; 99291

== ENCOUNTER 2024-09-02 18:47 | Emergency (ER) | payer OTHER ==
[~2024-09-02] VITALS: Ht 190.5 cm; Wt 91.0 kg
[~2024-09-02 18:47] MED LIST changes: -ACET-2708 MT; -DIAZ5TAB4 PO; -GABA-529 PO; -HYDR-4001 PO; +HYDR50TA54 PO; -KEPP500 PO; -KETO10TA2 PO; +NALT50TA6 PO; -OMEP20CA14 PO; -ONDA4TAB50 PO
[2024-09-02 18:49] VITALS: O2SAT 98
[2024-09-03 03:15] VITALS: BP 139/78; PULSE 97; RESP 15; TEMP 36.94740; O2SAT 98
== END 2024-09-03 03:17 | disposition home or self-care (01) ==
LOC: ER 18:47
DX: F10.129 Alcohol abuse with intoxication, unspecified (principal); Z79.899 Other long term (current) drug therapy; Z98.890 Other specified postprocedural states; Y90.9 Presence of alcohol in blood, level not specified
CPT/HCPCS: 99283

== ENCOUNTER 2024-09-07 18:48 | Emergency (ER) | payer OTHER ==
[~2024-09-07] VITALS: Ht 177.8 cm; Wt 84.5 kg
[2024-09-07 19:00] VITALS: TEMP 98.2; O2SAT 100
[2024-09-07 20:43] LABS: BASOPHILS % 0.6 % (0.0-2.0); EOSINOPHILS % 1.8 % (0.0-5.0); HEMATOCRIT. 39.7 % (42.0-52.0); HEMOGLOBIN. 13.4 g/dL (14.0-18.0); LYMPHOCYTES % 16.4 % (20.0-50.0); MEAN CORPUSCULAR HEMOGLOBIN 30.5 pg (28.0-32.0); MEAN CORPUSCULAR HGB CONC 33.8 g/dL (31.0-37.0); MEAN CORPUSCULAR VOLUME 90.2 fL (80.0-94.0); MEAN PLATELET VOLUME 7.8 fl (7.4-10.4); MONOCYTES % 7.2 % (2.0-8.0); PLATELET 197 x1000/uL (130-400); RED BLOOD CELL COUNT 4.41 mill/uL (4.7-6.1); RED CELL DISTRIBUTION WIDTH 14.8 % (11.6-14.6); WHITE BLOOD COUNT 5.6 x1000/uL (4.5-11.0)
[2024-09-07 20:48] LABS: CHLORIDE 105 mEq/L (98-107); POTASSIUM 4.3 mEq/L (3.5-5.1); SODIUM 143 mEq/L (136-145)
[2024-09-07 20:49] LABS: CARBON DIOXIDE 29 mEq/L (21-32)
[2024-09-07 20:54] LABS: CREATININE 0.9 mg/dL (0.6-1.3); GLUCOSE 94 mg/dL (70-105)
[2024-09-07 20:55] LABS: UREA NITROGEN BLOOD 10 mg/dL (9-23)
[2024-09-07 21:04] LABS: ETHANOL BLOOD 368 mg/dL (<10)
[2024-09-07] MEDS: LEVETIRACETAM 500MG TABLET PO ONE (21:13)
[2024-09-07 23:30] VITALS: BP 114/63; PULSE 96; RESP 16; O2SAT 99
== END 2024-09-08 00:03 | disposition home or self-care (01) ==
LOC: ER 18:48
DX: F10.229 Alcohol dependence with intoxication, unspecified (principal); G40.909 Epilepsy, unspecified, not intractable, without status epilepticus; Z79.899 Other long term (current) drug therapy; Y90.8 Blood alcohol level of 240 mg/100 ml or more
CPT/HCPCS: 36415; 80048; 80320; 83605; 85025; 99283; G0480

== ENCOUNTER 2024-09-13 14:19 | Emergency (ER) | payer OTHER ==
[~2024-09-13] VITALS: Ht 190.5 cm; Wt 88.0 kg
[2024-09-13 14:22] VITALS: O2SAT 98
[2024-09-13 14:39] VITALS: BP 125/85; PULSE 100; RESP 16; TEMP 98.7; O2SAT 96
== END 2024-09-13 16:07 | disposition left against medical advice (07) ==
LOC: ER 14:19
DX: R56.9 Unspecified convulsions (principal); Z53.21 Procedure and treatment not carried out due to patient leaving prior to being seen by health care provider

== ENCOUNTER 2024-09-13 17:43 | Emergency (ER) | payer OTHER ==
[~2024-09-13] VITALS: Ht 182.9 cm; Wt 82.0 kg
[2024-09-13 17:45] VITALS: BP 124/76; PULSE 110; RESP 18; TEMP 98.2; O2SAT 98
== END 2024-09-13 18:12 | disposition left against medical advice (07) ==
LOC: ER 17:43
DX: F10.129 Alcohol abuse with intoxication, unspecified (principal); Z53.21 Procedure and treatment not carried out due to patient leaving prior to being seen by health care provider; Y90.9 Presence of alcohol in blood, level not specified

== ENCOUNTER 2024-09-17 16:50 | Emergency (ER) | payer OTHER ==
[~2024-09-17] VITALS: Ht 190.5 cm; Wt 87.0 kg
[2024-09-17 16:53] VITALS: TEMP 98.4; O2SAT 98
[2024-09-17 18:11] VITALS: BP 100/41; PULSE 107; RESP 16; O2SAT 95
== END 2024-09-17 20:48 | disposition left against medical advice (07) ==
LOC: ER 16:50
DX: F10.229 Alcohol dependence with intoxication, unspecified (principal); Z79.899 Other long term (current) drug therapy; Y90.9 Presence of alcohol in blood, level not specified
CPT/HCPCS: 99283

== ENCOUNTER 2024-09-25 21:51 | Emergency (ER) | payer OTHER ==
[~2024-09-25] VITALS: Ht 180.3 cm; Wt 84.0 kg
[~2024-09-25 21:51] MED LIST changes: +KEPP500 MT; +KEPP500 PO
[2024-09-25 21:54] VITALS: TEMP 98.4; O2SAT 100
[2024-09-25] MEDS ORDERED: SODIUM CHLORIDE 0.9% 1,000 ML IV ONE (22:45)
[2024-09-26 00:33] VITALS: BP 131/73; PULSE 82; RESP 18; O2SAT 100
== END 2024-09-26 00:35 | disposition home or self-care (01) ==
LOC: ER 21:51
DX: F10.129 Alcohol abuse with intoxication, unspecified (principal); I10 Essential (primary) hypertension; Z00.00 Encounter for general adult medical examination without abnormal findings; Z79.899 Other long term (current) drug therapy; Z86.59 Personal history of other mental and behavioral disorders; Y90.9 Presence of alcohol in blood, level not specified
CPT/HCPCS: 99283; J7030; Z7610

== ENCOUNTER 2024-09-26 20:55 | Emergency (ER) | payer MEDICAID, OTHER ==
[~2024-09-26] VITALS: Ht 177.8 cm; Wt 75.0 kg
[~2024-09-26 20:55] MED LIST changes: +GABA-1180 PO; -GABA-532 PO
[2024-09-26 20:57] VITALS: TEMP 98.3; O2SAT 98
[2024-09-26 22:29] LABS: HEMATOCRIT. 34.6 % (42.0-52.0); HEMOGLOBIN. 11.5 g/dL (14.0-18.0); MEAN CORPUSCULAR HEMOGLOBIN 30.6 pg (28.0-32.0); MEAN CORPUSCULAR HGB CONC 33.2 g/dL (31.0-37.0); MEAN PLATELET VOLUME 8.1 fl (7.4-10.4); PLATELET 165 x1000/uL (130-400); RED BLOOD CELL COUNT 3.76 mill/uL (4.7-6.1); RED CELL DISTRIBUTION WIDTH 15.8 % (11.6-14.6); WHITE BLOOD COUNT 2.8 x1000/uL (4.5-11.0)
[2024-09-26 22:30] LABS: DIFFERENTIAL COMMENT 1
[2024-09-26 22:36] LABS: CHLORIDE 112 mEq/L (98-107); POTASSIUM 3.8 mEq/L (3.5-5.1); SODIUM 148 mEq/L (136-145)
[2024-09-26 22:37] LABS: CALCIUM 8.7 mg/dL (8.7-10.4); CARBON DIOXIDE 29 mEq/L (21-32)
[2024-09-26 22:42] LABS: CREATININE 1.1 mg/dL (0.6-1.3); GLUCOSE 113 mg/dL (70-105); UREA NITROGEN BLOOD 13 mg/dL (9-23)
[2024-09-26 22:44] LABS: ALANINE AMINOTRANSFERASE 45 IU/L (10-49); ASPARTATE AMINOTRANSFERASE 22 IU/L (<34); BILIRUBIN TOTAL 0.2 mg/dL (0.1-1.0); PROTEIN TOTAL 6.7 g/dL (6.0-8.3)
[2024-09-26] MEDS: LEVETIRACETAM 500MG PREMIX 100 ML IV ONE (22:47)
[2024-09-26] MEDS: SODIUM CHLORIDE 0.9% 1,000 ML IV ONE (22:48)
[2024-09-26 22:52] LABS: ETHANOL BLOOD 338 mg/dL (<10)
[2024-09-26 23:31] LABS: PLATELET ESTIMATE NORMAL
[2024-09-27] MEDS: SODIUM CHLORIDE 0.9% 1,000 ML IV ONE (00:58)
[2024-09-27] MEDS: FOLIC ACID 1 MG, THIAMINE HCL 100 MG, MVI, ADULT NO.1 10 ML in DEXTROSE 5% WATER 1,000 ML IV ONE (01:44)
[2024-09-27] MEDS: ONDANSETRON HCL 4MG/2ML INJ IV ONE (03:22)
[2024-09-27 03:38] VITALS: BP 140/98; PULSE 96; RESP 19; O2SAT 96
== END 2024-09-27 03:41 | disposition home or self-care (01) ==
LOC: ER 20:55
DX: F10.229 Alcohol dependence with intoxication, unspecified (principal); E87.0 Hyperosmolality and hypernatremia; D72.819 Decreased white blood cell count, unspecified; I10 Essential (primary) hypertension; R41.82 Altered mental status, unspecified; Z79.899 Other long term (current) drug therapy; Y90.8 Blood alcohol level of 240 mg/100 ml or more
CPT/HCPCS: 80053; 80320; 85025; 36415; 70450; 96365; 99285; 96367; 96375; J1953; J7030 ×2; Z7610 ×4; J3490 ×2; J2405; J3411; J7070; G0480

== ENCOUNTER 2024-10-02 15:26 | Emergency (ER) | payer MEDICAID, OTHER ==
[~2024-10-02] VITALS: Ht 177.8 cm; Wt 75.0 kg
[2024-10-02 15:37] VITALS: BP 124/88; PULSE 91; RESP 16; TEMP 98.6; O2SAT 96
[2024-10-02] MEDS ORDERED: HALOPERIDOL 5MG TABLET PO ONE (17:15)
[2024-10-02] MEDS: HALOPERIDOL LACTATE 5MG/ML VIAL IM ONE (17:34)
[2024-10-02] MEDS: ONDANSETRON HCL 4MG/2ML INJ IM NR (17:35)
[2024-10-02 21:28] LABS: *AMPHETAMINES SCREEN URINE NEGATIVE (NEGATIVE); *BARBITURATES SCREEN URINE NEGATIVE (NEGATIVE); *BENZODIAZEPINES SCREEN URINE NEGATIVE (NEGATIVE); *COCAINE SCREEN URINE NEGATIVE (NEGATIVE); METHADONE URINE SCREEN NEGATIVE (NEGATIVE); OPIATES URINE SCREEN NEGATIVE (NEGATIVE)
[2024-10-02 21:29] LABS: CANNABINOID URINE SCREEN NEGATIVE (NEGATIVE); ECSTASY MDMA SCREEN URINE NEGATIVE (NEGATIVE); PHENCYCLIDINE URINE SCREEN NEGATIVE (NEGATIVE)
[2024-10-02 22:54] LABS: BASOPHILS % 1.4 % (0.0-2.0); EOSINOPHILS % 2.6 % (0.0-5.0); HEMATOCRIT. 40.8 % (42.0-52.0); HEMOGLOBIN. 13.4 g/dL (14.0-18.0); LYMPHOCYTES % 34.4 % (20.0-50.0); MEAN CORPUSCULAR HEMOGLOBIN 29.6 pg (28.0-32.0); MEAN CORPUSCULAR HGB CONC 32.9 g/dL (31.0-37.0); MEAN CORPUSCULAR VOLUME 90.1 fL (80.0-94.0); MEAN PLATELET VOLUME 8.1 fl (7.4-10.4); MONOCYTES % 7.3 % (2.0-8.0); NEUTROPHILS % 54.3 % (40.0-76.0); PLATELET 248 x1000/uL (130-400); RED BLOOD CELL COUNT 4.52 mill/uL (4.7-6.1); RED CELL DISTRIBUTION WIDTH 15.9 % (11.6-14.6); WHITE BLOOD COUNT 3.6 x1000/uL (4.5-11.0)
[2024-10-02 22:55] LABS: CARBON DIOXIDE 32 mEq/L (21-32); CHLORIDE 106 mEq/L (98-107); POTASSIUM 4.4 mEq/L (3.5-5.1); SODIUM 144 mEq/L (136-145)
[2024-10-02 22:56] LABS: CALCIUM 8.9 mg/dL (8.7-10.4)
[2024-10-02 23:00] LABS: UREA NITROGEN BLOOD 10 mg/dL (9-23)
[2024-10-02 23:01] LABS: ETHANOL BLOOD 300 mg/dL (<10); GLUCOSE 84 mg/dL (70-105)
[2024-10-02 23:02] LABS: ALANINE AMINOTRANSFERASE 27 IU/L (10-49)
[2024-10-02 23:03] LABS: ACETAMINOPHEN < 2 ug/mL (10-30); ALBUMIN 4.3 g/dL (3.2-4.8); ASPARTATE AMINOTRANSFERASE 30 IU/L (<34); BILIRUBIN TOTAL 0.3 mg/dL (0.1-1.0); PROTEIN TOTAL 6.7 g/dL (6.0-8.3)
[2024-10-02 23:04] LABS: BILIRUBIN DIRECT < 0.1 mg/dL (<=3.0)
== END 2024-10-03 04:38 | disposition home or self-care (01) ==
LOC: ER 15:26
DX: F10.229 Alcohol dependence with intoxication, unspecified (principal); I10 Essential (primary) hypertension; G40.909 Epilepsy, unspecified, not intractable, without status epilepticus; Z79.899 Other long term (current) drug therapy; Y90.8 Blood alcohol level of 240 mg/100 ml or more
CPT/HCPCS: 80076; 80305; 80048; 80307; 80329; 80320; 85025; 36415; 96372; 99291; J1630; J2405; G0480

== ENCOUNTER 2024-10-09 12:38 | Emergency (ER) | payer MEDICAID, OTHER ==
[~2024-10-09] VITALS: Ht 182.9 cm; Wt 84.0 kg
[2024-10-09 12:47] VITALS: O2SAT 98
[2024-10-09] MEDS: LEVETIRACETAM 500MG PREMIX 100 ML IV ONE (13:31)
[2024-10-09] MEDS: SODIUM CHLORIDE 0.9% 1,000 ML IV ONE (13:33)
[2024-10-09 18:05] VITALS: BP 124/97; PULSE 96; RESP 18; TEMP 37.05852; O2SAT 98
== END 2024-10-09 18:10 ==
LOC: ER 12:44
DX: F10.129 Alcohol abuse with intoxication, unspecified (principal); I10 Essential (primary) hypertension; Z79.899 Other long term (current) drug therapy; Z86.59 Personal history of other mental and behavioral disorders; Y90.9 Presence of alcohol in blood, level not specified
CPT/HCPCS: 99283; 96374; J1953; J7030

== ENCOUNTER 2024-12-13 15:14 | Emergency (ER) | payer MEDICAID ==
[~2024-12-13] VITALS: Ht 175.3 cm; Wt 86.2 kg
[2024-12-13 15:16] VITALS: BP 140/92; PULSE 92; RESP 15; TEMP 98.2; O2SAT 100
== END 2024-12-13 16:27 | disposition home or self-care (01) ==
LOC: ER 15:14
DX: F10.129 Alcohol abuse with intoxication, unspecified (principal); I10 Essential (primary) hypertension; Z79.899 Other long term (current) drug therapy; Y90.9 Presence of alcohol in blood, level not specified
CPT/HCPCS: 99283

== ENCOUNTER 2025-04-28 23:49 | Emergency (ER) | payer MEDICAID, OTHER ==
[~2025-04-28] VITALS: Ht 180.3 cm; Wt 87.0 kg
[2025-04-28 23:52] VITALS: O2SAT 97
[2025-04-29] MEDS: LEVETIRACETAM 500MG TABLET PO ONE (00:57)
[2025-04-29 03:57] LABS: CLARITY URINE CLEAR (CLEAR); COLOR URINE YELLOW (YELLOW); GLUCOSE URINE NEGATIVE (NEGATIVE); KETONES URINE NEGATIVE (NEGATIVE); LEUKOCYTE ESTERASE URINE NEGATIVE (NEGATIVE); NITRITE URINE NEGATIVE (NEGATIVE); OCCULT BLOOD URINE NEGATIVE (NEGATIVE); PH URINE 6.5 (4.5-8.0); PROTEIN URINE NEGATIVE (NEGATIVE); SPECIFIC GRAVITY URINE 1.004 (1.005-1.030)
[2025-04-29 04:03] LABS: *AMPHETAMINES SCREEN URINE NEGATIVE (NEGATIVE); *BARBITURATES SCREEN URINE NEGATIVE (NEGATIVE); *BENZODIAZEPINES SCREEN URINE NEGATIVE (NEGATIVE); *COCAINE SCREEN URINE NEGATIVE (NEGATIVE)
[2025-04-29 04:04] LABS: CANNABINOID URINE SCREEN NEGATIVE (NEGATIVE); ECSTASY MDMA SCREEN URINE NEGATIVE (NEGATIVE); METHADONE URINE SCREEN NEGATIVE (NEGATIVE); OPIATES URINE SCREEN NEGATIVE (NEGATIVE); PHENCYCLIDINE URINE SCREEN NEGATIVE (NEGATIVE)
[2025-04-29 04:55] VITALS: BP 110/67; PULSE 91; RESP 16; TEMP 36.8; O2SAT 95
== END 2025-04-29 05:02 | disposition home or self-care (01) ==
LOC: ER 23:49
DX: F10.229 Alcohol dependence with intoxication, unspecified (principal); R56.9 Unspecified convulsions; I10 Essential (primary) hypertension; Z59.00 Homelessness unspecified; Z79.899 Other long term (current) drug therapy; Y90.9 Presence of alcohol in blood, level not specified
CPT/HCPCS: 80305; 81003; 82962; 99283

== ENCOUNTER 2025-06-04 08:13 | Inpatient (IN) | payer OTHER ==
[~2025-06-04] VITALS: Ht 190.5 cm; Wt 85.7 kg
[2025-06-04 08:16] VITALS: O2SAT 99
[2025-06-04] MEDS: LEVETIRACETAM 1000MG PREMIX 100 ML IV ONE (08:46)
[2025-06-04 08:48] LABS: BASOPHILS % 0.4 % (0.0-2.0); EOSINOPHILS % 0.4 % (0.0-5.0); HEMATOCRIT. 40.7 % (42.0-52.0); HEMOGLOBIN. 13.4 g/dL (14.0-18.0); LYMPHOCYTES % 15.3 % (20.0-50.0); MEAN PLATELET VOLUME 8.1 fl (7.4-10.4); MONOCYTES % 3.0 % (2.0-8.0); NEUTROPHILS % 80.9 % (40.0-76.0); PLATELET 191 x1000/uL (130-400); RED BLOOD CELL COUNT 4.51 mill/uL (4.7-6.1); RED CELL DISTRIBUTION WIDTH 15.9 % (11.6-14.6)
[2025-06-04 09:05] LABS: CREATININE 1.3 mg/dL (0.6-1.3); ETHANOL BLOOD < 10 mg/dL (<10); TROPONIN I HIGH SENSITIVITY < 4 ng/L (3.0-53); UREA NITROGEN BLOOD 10 mg/dL (9-23)
[2025-06-04] MEDS ORDERED: FOLIC ACID 1 MG, THIAMINE HCL 100 MG, MVI, ADULT NO.1 10 ML in DEXTROSE 5% WATER 1,000 ML IV ONE (10:00)
[2025-06-04] MEDS: LORAZEPAM 2MG/ML UD SYRINGE IV SCH (10:13)
[2025-06-04 10:19] LABS: CLARITY URINE CLEAR (CLEAR); COLOR URINE YELLOW (YELLOW); GLUCOSE URINE TRACE (NEGATIVE); KETONES URINE TRACE (NEGATIVE); LEUKOCYTE ESTERASE URINE NEGATIVE (NEGATIVE); NITRITE URINE NEGATIVE (NEGATIVE); OCCULT BLOOD URINE 2+ (NEGATIVE); PH URINE 5.5 (4.5-8.0); PROTEIN URINE 2+ (NEGATIVE); SPECIFIC GRAVITY URINE 1.015 (1.005-1.030); UROBILINOGEN URINE 0.2 E.U./dL (0.2-1.0)
[2025-06-04] MEDS: FOLIC ACID 1 MG, THIAMINE HCL 100 MG, MVI, ADULT NO.1 10 ML in DEXTROSE 5% WATER 1,000 ML IV ONE (10:25)
[2025-06-04 10:26] LABS: FINE GRANULAR CASTS URINE 0-5 /lpf; HYALINE CASTS URINE 0-5 /lpf; SQUAMOUS EPITHELIAL CELL URINE RARE /lpf (RARE/1+)
[2025-06-04 10:27] LABS: MUCUS URINE 1+ /lpf (NONE/TRACE); RBC URINE NONE SEEN /hpf (0-2); WBC URINE 0-2 /hpf (0-2)
[2025-06-04 10:28] LABS: BACTERIA URINE NONE SEEN
[2025-06-04 10:52] LABS: *AMPHETAMINES SCREEN URINE NEGATIVE (NEGATIVE); *BARBITURATES SCREEN URINE NEGATIVE (NEGATIVE); *BENZODIAZEPINES SCREEN URINE NEGATIVE (NEGATIVE); *COCAINE SCREEN URINE NEGATIVE (NEGATIVE); METHADONE URINE SCREEN NEGATIVE (NEGATIVE); OPIATES URINE SCREEN NEGATIVE (NEGATIVE)
[2025-06-04 10:53] LABS: CANNABINOID URINE SCREEN NEGATIVE (NEGATIVE); ECSTASY MDMA SCREEN URINE NEGATIVE (NEGATIVE); PHENCYCLIDINE URINE SCREEN NEGATIVE (NEGATIVE)
[2025-06-04 11:09] LABS: TROPONIN I HIGH SENSITIVITY < 4 ng/L (3.0-53)
[2025-06-04 13:52] VITALS: BP 171/100; PULSE 74; RESP 20; TEMP 38; O2SAT 99
[2025-06-04] MEDS ORDERED: CLONIDINE 0.1MG TABLET PO PRN (14:30)
[2025-06-04] MEDS ORDERED: ACETAMINOPHEN 325MG TABLET PO PRN (14:30)
[2025-06-04] MEDS ORDERED: IPRATROPIUM/ALBUTEROL 0.5-3(2.5)MG/3ML NEB HHN PRN (14:30)
[2025-06-04] MEDS ORDERED: DOCUSATE SODIUM 100MG CAPSULE PO PRN (14:30)
[2025-06-04] MEDS ORDERED: ONDANSETRON HCL 4MG/2ML INJ IV PRN (14:30)
[2025-06-04] MEDS: HYDROXYZINE 25MG TABLET PO SCH (14:45)
[2025-06-04 15:13] VITALS: BP 171/100; PULSE 74; RESP 20; TEMP 36.696
[2025-06-04 15:37] VITALS: BP 153/102; PULSE 86; RESP 18; TEMP 36.6; O2SAT 98
[2025-06-04] MEDS ORDERED: ACETAMINOPHEN 650MG SUPP PR PRN (16:15)
[2025-06-04] MEDS: MVI, ADULT NO.1 10 ML, FOLIC ACID 1 MG, THIAMINE HCL 100 MG in SODIUM CHLORIDE 0.9% 1,0... IV SCH (17:15)
[2025-06-04] MEDS: VISCOUS LIDOCAINE 2% 15 ML UDC MM SCH (18:00)
[2025-06-04] MEDS: DIPHENHYDRAMINE 12.5MG/5ML UDC PO SCH (18:00)
[2025-06-04] MEDS: [UNRECOGNIZED DRUG - OTHER] XX SCH (18:14)
[2025-06-04] MEDS: GABAPENTIN 300MG CAPSULE PO SCH (18:45)
[2025-06-04] MEDS: ACETAMINOPHEN 325MG TABLET PO PRN (18:46)
[2025-06-04 19:00] LABS: FOLIC ACID (FOLATE) SERUM > 20.00 ng/mL (>5.38)
[2025-06-04 19:01] LABS: VITAMIN B12 SERUM 451 pg/mL (211-911)
[2025-06-04 20:00] VITALS: BP 125/89; PULSE 82; RESP 20; TEMP 36.7; O2SAT 98
[2025-06-04] MEDS: LEVETIRACETAM 500MG PREMIX 100 ML IV SCH (20:50)
[2025-06-04] MEDS ORDERED: LEVETIRACETAM 500MG in NACL 100ML PREMIX IV SCH (21:00)
[2025-06-04] MEDS ORDERED: LEVETIRACETAM 500MG TABLET PO SCH (21:00)
[2025-06-04] MEDS: CHLORDIAZEPOXIDE 25MG CAPSULE PO SCH (22:00)
[2025-06-05 04:00] VITALS: BP 120/85; PULSE 89; RESP 20; TEMP 36.5; O2SAT 96
[2025-06-05 08:00] VITALS: BP 133/96; PULSE 84; RESP 19; TEMP 36.6; O2SAT 98
[2025-06-05] MEDS: PANTOPRAZOLE 40MG DR TABLET PO SCH (10:05)
[2025-06-05] MEDS: FOLIC ACID 1MG TABLET PO SCH (10:05)
[2025-06-05] MEDS: THIAMINE HCL 100MG TABLET PO SCH (10:06)
[2025-06-05] MEDS: MULTIVITAMINS,THER W-MINERALS TABLET PO SCH (10:06)
[2025-06-05] MEDS: NALTREXONE HCL 50MG TABLET PO SCH (10:10)
[2025-06-05] MEDS: SODIUM CHLORIDE 0.9% 1,000 ML IV SCH (10:30)
[2025-06-05 12:00] VITALS: BP 130/74; PULSE 80; RESP 19; TEMP 36.6; O2SAT 98
[2025-06-05 13:42] LABS: BASOPHILS % 0.4 % (0.0-2.0); EOSINOPHILS % 2.6 % (0.0-5.0); HEMATOCRIT. 38.3 % (42.0-52.0); HEMOGLOBIN. 12.6 g/dL (14.0-18.0); LYMPHOCYTES % 21.9 % (20.0-50.0); MEAN PLATELET VOLUME 8.7 fl (7.4-10.4); MONOCYTES % 8.3 % (2.0-8.0); NEUTROPHILS % 66.8 % (40.0-76.0); PLATELET 138 x1000/uL (130-400); RED BLOOD CELL COUNT 4.28 mill/uL (4.7-6.1); RED CELL DISTRIBUTION WIDTH 15.4 % (11.6-14.6)
[2025-06-05 14:00] LABS: CREATININE 0.9 mg/dL (0.6-1.3); UREA NITROGEN BLOOD < 5 mg/dL (9-23)
[2025-06-05 14:49] LABS: T4 FREE 1.39 ng/dL (0.89-1.76)
[2025-06-05 16:00] VITALS: BP 126/70; PULSE 78; RESP 19; TEMP 36.7; O2SAT 98
== END 2025-06-05 17:54 | disposition left against medical advice (07) | DRG 53 ==
LOC: ER 08:44 → 7WST 11:32 → EDBEDREQTM 11:39 → EDBEDREQ 11:39 → ENRESERV 12:22
PROVIDERS: ADMIT Internal Medicine; ATTEND Internal Medicine
DX: G40.909 Epilepsy, unspecified, not intractable, without status epilepticus (principal); G92.8 Other toxic encephalopathy; N17.9 Acute kidney failure, unspecified; E87.20 Acidosis, unspecified; D64.9 Anemia, unspecified; F10.239 Alcohol dependence with withdrawal, unspecified; R73.9 Hyperglycemia, unspecified; I12.9 Hypertensive chronic kidney disease with stage 1 through stage 4 chronic kidney disease, or unspecified chronic kidney disease; R80.9 Proteinuria, unspecified; Y90.9 Presence of alcohol in blood, level not specified; N18.1 Chronic kidney disease, stage 1; R50.9 Fever, unspecified; Z53.29 Procedure and treatment not carried out because of patient's decision for other reasons; Z79.899 Other long term (current) drug therapy
CPT/HCPCS: 36415; 71045; 80048; 80305; 80320; 81003; 82140; 82550; 82607; 82746; 82962; 83036; 84439; 84443; 84481; 84484; 85025; 94640; 99291; A4606; J1953; J2060; J3411; J3490; J7030; J7070; Q0163; G0480

== ENCOUNTER 2025-06-06 01:17 | Emergency (ER) | payer OTHER ==
[~2025-06-06] VITALS: Ht 188 cm; Wt 82.0 kg
[2025-06-06 01:32] VITALS: TEMP 36.8; O2SAT 99
[2025-06-06 05:08] VITALS: BP 104/76; PULSE 110; RESP 18; O2SAT 100
== END 2025-06-06 05:10 | disposition home or self-care (01) ==
LOC: ER 01:24
DX: F10.129 Alcohol abuse with intoxication, unspecified (principal); Z79.899 Other long term (current) drug therapy; Y90.9 Presence of alcohol in blood, level not specified
CPT/HCPCS: 99283

== ENCOUNTER 2025-06-13 01:05 | Emergency (ER) | payer OTHER ==
[~2025-06-13] VITALS: Ht 182.9 cm; Wt 82.0 kg
[2025-06-13 01:09] VITALS: BP 126/88; PULSE 85; RESP 14; TEMP 36.7; O2SAT 100
== END 2025-06-13 02:29 | disposition home or self-care (01) ==
LOC: ER 01:05
DX: Z76.5 Malingerer [conscious simulation] (principal); Z79.899 Other long term (current) drug therapy
CPT/HCPCS: 99283; 96372; J2060

== ENCOUNTER 2025-06-13 02:29 | Emergency (ER) | payer OTHER ==
[~2025-06-13] VITALS: Ht 190.5 cm; Wt 84.0 kg
[2025-06-13 02:32] VITALS: O2SAT 99
[2025-06-13 02:33] VITALS: BP 112/82; PULSE 86; RESP 18; TEMP 36.9; O2SAT 99
== END 2025-06-13 05:20 | disposition home or self-care (01) ==
LOC: ER 02:29
DX: Z00.8 Encounter for other general examination (principal); M54.50 Low back pain, unspecified; Z79.899 Other long term (current) drug therapy; Z98.890 Other specified postprocedural states
CPT/HCPCS: 99282

== ENCOUNTER 2025-06-28 12:59 | Emergency (ER) | payer OTHER ==
[~2025-06-28] VITALS: Ht 177.8 cm; Wt 80.0 kg
[2025-06-28 13:01] VITALS: O2SAT 99
[2025-06-28] MEDS: LEVETIRACETAM 500MG TABLET PO ONE (15:23)
[2025-06-28 16:05] VITALS: BP 139/98; PULSE 90; RESP 18; TEMP 36.6; O2SAT 98
== END 2025-06-28 19:32 | disposition home or self-care (01) ==
LOC: ER 13:08
DX: F10.129 Alcohol abuse with intoxication, unspecified (principal); R51.9 Headache, unspecified; Z79.899 Other long term (current) drug therapy; Y90.9 Presence of alcohol in blood, level not specified
CPT/HCPCS: 70450; 99284; Z7610 ×2; A4606

== ENCOUNTER 2025-07-19 17:28 | Emergency (ER) | payer MEDICAID ==
[~2025-07-19] VITALS: Ht 185.4 cm; Wt 82.0 kg
[2025-07-19 17:31] VITALS: O2SAT 98
[2025-07-19 18:48] LABS: BASOPHILS % 1.0 % (0.0-2.0); EOSINOPHILS % 2.0 % (0.0-5.0); HEMATOCRIT. 35.0 % (42.0-52.0); HEMOGLOBIN. 11.5 g/dL (14.0-18.0); LYMPHOCYTES % 24.2 % (20.0-50.0); MEAN PLATELET VOLUME 8.3 fl (7.4-10.4); MONOCYTES % 13.8 % (2.0-8.0); NEUTROPHILS % 59.0 % (40.0-76.0); PLATELET 177 x1000/uL (130-400); RED BLOOD CELL COUNT 3.89 mill/uL (4.7-6.1); RED CELL DISTRIBUTION WIDTH 15.4 % (11.6-14.6)
[2025-07-19 18:56] LABS: CREATININE 1.0 mg/dL (0.6-1.3); UREA NITROGEN BLOOD 8 mg/dL (9-23)
[2025-07-19 18:57] LABS: TROPONIN I HIGH SENSITIVITY < 4 ng/L (3.0-53)
[2025-07-19] MEDS: SODIUM CHLORIDE 0.9% 1,000 ML IV STA (21:13)
[2025-07-19 21:47] LABS: CLARITY URINE CLEAR (CLEAR); COLOR URINE YELLOW (YELLOW); GLUCOSE URINE NEGATIVE (NEGATIVE); KETONES URINE TRACE (NEGATIVE); LEUKOCYTE ESTERASE URINE NEGATIVE (NEGATIVE); NITRITE URINE NEGATIVE (NEGATIVE); OCCULT BLOOD URINE NEGATIVE (NEGATIVE); PH URINE 5.5 (4.5-8.0); PROTEIN URINE NEGATIVE (NEGATIVE); SPECIFIC GRAVITY URINE 1.015 (1.005-1.030); UROBILINOGEN URINE 1.0 E.U./dL (0.2-1.0)
[2025-07-19 22:01] LABS: *AMPHETAMINES SCREEN URINE NEGATIVE (NEGATIVE); *BARBITURATES SCREEN URINE NEGATIVE (NEGATIVE); *BENZODIAZEPINES SCREEN URINE NEGATIVE (NEGATIVE); *COCAINE SCREEN URINE NEGATIVE (NEGATIVE); METHADONE URINE SCREEN NEGATIVE (NEGATIVE); OPIATES URINE SCREEN NEGATIVE (NEGATIVE)
[2025-07-19 22:02] LABS: CANNABINOID URINE SCREEN NEGATIVE (NEGATIVE); ECSTASY MDMA SCREEN URINE NEGATIVE (NEGATIVE); PHENCYCLIDINE URINE SCREEN NEGATIVE (NEGATIVE)
[2025-07-19 22:26] VITALS: BP 112/71; PULSE 88; RESP 16; TEMP 36.8; O2SAT 98
== END 2025-07-19 22:30 | disposition short-term general hospital (02) ==
LOC: ER 17:28 → EDBEDREQTM 21:06 → EDBEDREQ 21:06 → ER 22:30 → CMPBEDREQ 07-20 09:11
DX: R56.9 Unspecified convulsions (principal); I49.3 Ventricular premature depolarization; F10.90 Alcohol use, unspecified, uncomplicated; Z79.899 Other long term (current) drug therapy; Z87.820 Personal history of traumatic brain injury; Z20.822 Contact with and (suspected) exposure to COVID-19; Y90.9 Presence of alcohol in blood, level not specified
CPT/HCPCS: 99285; 96360; 70450; 71045; 87426; 80305; 80048; 81003; 85025; 84484; 93005; J7030